=== PATIENT | male | born 1960 | race Caucasian/White ===

== ENCOUNTER → 2016-10-31 | Outpatient (CLI) | payer OTHER ==
--- NOTE | 2016-10-31 16:50 | CR ---
EXAMINATION: Right shoulder HISTORY: Pain COMPARISON: MRI dated 08/21/2011 TECHNIQUE: 3 views FINDINGS/IMPRESSION: There is no definite acute osseous abnormality, dislocation, or fracture identi fied. Bone mineralization and joint spaces are grossly preserved. Mild acromioclavicular osteoarthri tic changes are noted.
== END ==
LOC: MW.CHORTHO 07:55
PROVIDERS: ATTEND Orthopaedic Surgery
DX: M25.511 Pain in right shoulder (principal); M19.011 Primary osteoarthritis, right shoulder
CPT/HCPCS: 73030-26-RT; 73030-RT

== ENCOUNTER → 2017-01-01 | Outpatient (CLI) | payer OTHER ==
[~2017-01-01] MED LIST: Iopamidol 612 MG/ML 30 ML SDV IARTIC ONE; Sodium Chloride 0.9% 2.5 ML Syringe IV ONE
--- NOTE | 2017-01-01 11:45 | MR ---
EXAMINATION: MRI arthrogram of the right shoulder HISTORY: Impingement COMPARISON: 08/21/2011 TECHNIQUE: Multiplanar and multisequence images obtained of the right shoulder following the intra-a rticular administration of MultiHance. FINDINGS: There is a type II acromion with mild acromioclavicular osteoarthritic changes noted. Ther e is a trace subacromial fluid. There is a small partial thickness tear of the supraspinatus tendon at the footplate and a small partial thickness tear of the infraspinatus tendon at the footplate. Th e long head biceps tendon is present within the bicipital groove. The subscapularis and teres minor tendons appear intact. There is moderate bone marrow edema within the greater tuberosity. A very sub tle SLAP tear is not excluded. The articular surfaces are preserved. The inferior glenohumeral ligam ent is intact. IMPRESSION: 1. Moderate edema underlying the greater tuberosity this could represent a contusion versus microfra cture. 2. Small partial thickness undersurface tearing of the supraspinatus and infraspinous tendons at the footplate. 3. Acromioclavicular and glenohumeral osteoarthritic changes. 4. A subtle SLAP tear is not excluded.
--- NOTE | 2017-01-01 16:36 | CR ---
EXAMINATION: Fluoro guided right shoulder arthrogram. HISTORY: Shoulder pain. 719.41. TECHNIQUE/PROCEDURE: Written informed consent was obtained from the patient . The site of the anterior rotator interval is marked under fluoroscopy. Under aseptic conditions usin g 1% lidocaine as local anesthesia 22-gauge spinal needle was introduced into the joint space. A sma ll amount of contrast test dose was injected which freely flowed into the joint space. Afterwards, 15 cc of cocktail consisting of saline, gadolinium and local lidocaine including CT contrast was adm inistered without difficulty. There was no passage of the contrast into the subacromial space. Most of the contrast is seen within the joint space and sub coracoid bursal region. IMPRESSION: Successful Fluoro guided right shoulder arthrogram without evidence for high-grade rotat or cuff tear.
== END ==
LOC: MW.DI 08:34
PROVIDERS: ATTEND Orthopaedic Surgery
DX: M25.511 Pain in right shoulder (principal); M75.41 Impingement syndrome of right shoulder; R60.9 Edema, unspecified; M75.111 Incomplete rotator cuff tear or rupture of right shoulder, not specified as traumatic; M19.011 Primary osteoarthritis, right shoulder
CPT/HCPCS: 23350; 73222; 77002; Q9967